=== PATIENT | female | born 1985 | race Caucasian/White ===

== ENCOUNTER 2016-09-27 03:06 | Emergency (ER) | payer OTHER ==
[~2016-09-27] VITALS: Ht 160 cm; Wt 51.9 kg
[~2016-09-27 03:06] MED LIST: ADVAIR 100-501 EACH IH; ADVAIR 250-501 EACH IH; ALBUTEROL17 GM IH; AMBIEN5 MG PO; AUGMENTIN500 MG PO; CLEOCIN300 MG PO; CLINDAMYCIN HC150 MG PO; COLACE100 MG PO; COUGH & COLD S237 ML PO; DOXYCYCLINE HY100 M3 PO; ELAVIL50 MG PO; GLIPIZIDE; LANTUS; LEXAPRO20 MG PO; METFORMIN; METHADONE10 MG PO; MIRALAX17 GM PO; MOTRIN800 MG PO; PERCOCET 5/31 TABLET PO; SIMVASTATIN; ULTRAM50 MG PO; ZOFRAN4 MG PO; [UNRECOGNIZED DRUG - OTHER] PO
[2016-09-27] MEDS ORDERED: CLINDAMYCIN HC300 MG PO (03:32)
[2016-09-27 03:49] VITALS: BP 116/78
== END 2016-09-27 03:50 | disposition home or self-care (01) ==
LOC: EME 03:06
DX: L03.311 Cellulitis of abdominal wall (principal)
CPT/HCPCS: 99281; 99283

== ENCOUNTER 2016-10-09 10:15 | Emergency (ER) | payer OTHER ==
[~2016-10-09] VITALS: Ht 160 cm; Wt 50.8 kg
[~2016-10-09 10:15] MED LIST changes: +CLINDAMYCIN HC300 MG PO
[2016-10-09 12:02] VITALS: BP 105/74
== END 2016-10-09 12:02 | disposition home or self-care (01) ==
LOC: EME 10:15 → EXP 10:15
DX: L02.211 Cutaneous abscess of abdominal wall (principal); Z48.00 Encounter for change or removal of nonsurgical wound dressing; L23.1 Allergic contact dermatitis due to adhesives; F17.200 Nicotine dependence, unspecified, uncomplicated; Z71.6 Tobacco abuse counseling; R82.99 Other abnormal findings in urine; R42 Dizziness and giddiness
CPT/HCPCS: 99281; 99283

== ENCOUNTER 2016-11-14 18:52 | Emergency (ER) | payer OTHER ==
[~2016-11-14] VITALS: Ht 160 cm; Wt 51.5 kg
[2016-11-14] MEDS ORDERED: BACTROBAN NASAL1 G1 BOTH NARES (19:45)
[2016-11-14] MEDS ORDERED: BACTRIM,SEPT1 TABLET PO (19:45)
[2016-11-14 19:50] VITALS: BP 99/73
== END 2016-11-14 20:00 | disposition home or self-care (01) ==
LOC: EME 18:52
DX: L02.31 Cutaneous abscess of buttock (principal)
CPT/HCPCS: 99281; 99284

== ENCOUNTER 2017-12-10 22:58 | Emergency (ER) | payer OTHER ==
[~2017-12-10] VITALS: Ht 160 cm; Wt 58.1 kg
[~2017-12-10 22:58] MED LIST changes: +BACTRIM,SEPT1 TABLET PO; +BACTROBAN NASAL1 G1 BOTH NARES
[2017-12-10 23:31] LABS: HEMOGLOBIN 12.1 G/DL (11.9-15.5); MCH 26.7 PG (29.0-34.0); MCHC 32.7 G/DL (30.0-36.0); MCV 81.7 FL (83-99); PLATELET COUNT 141 K/uL (156-360); RBC DIS.WIDTH-CV 16.2 % (11.8-14.6); RBC DIS.WIDTH-SD 48.6 % (39-53); RED BLOOD COUNT 4.53 M/uL (3.80-5.20); WHITE BLOOD COUNT 10.7 K/uL (4.1-10.2)
[2017-12-10 23:42] LABS: CHLORIDE 102 mEq/L (99-109); POTASSIUM 3.6 mEq/L (3.7-5.4); SODIUM 139 mEq/L (136-147)
[2017-12-10 23:44] LABS: GLUCOSE 117 mg/dL (70-99)
[2017-12-10 23:46] LABS: TOTAL BILIRUBIN 0.2 mg/dL (0.0-1.0)
[2017-12-10 23:48] LABS: ALKALINE PHOSPHATASE 78 IU/L (3-129); CREATININE 0.9 mg/dL (0.6-1.3); GFR ESTIMATE (CALCULATED) > 59 mL/min/
[2017-12-10 23:49] LABS: UREA NITROGEN (BUN) 10 mg/dL (9-23)
[2017-12-10 23:50] LABS: AST (GOT) 16 IU/L (2-34)
[2017-12-10 23:51] LABS: ALT (GPT) 9 IU/L (3-49)
[2017-12-11 00:01] LABS: QUANTITATIVE HCG < 4.0 MIU/ML
[2017-12-11 01:41] LABS: APPEARANCE CLEAR ((CLEAR)); BILIRUBIN NEGATIVE; BLOOD NEGATIVE; COLOR YELLOW ((YELLOW)); GLUCOSE (STRIP) NEGATIVE; KETONES NEGATIVE; LEUKOCYTES NEGATIVE; NITRITE NEGATIVE; PROTEIN (STRIP) NEGATIVE; SPECIFIC GRAVITY 1.009 (1.000-1.030); UCUL ADDED? NO; UROBILINOGEN 0.2 MG/DL (0.2-1.0)
[2017-12-11 02:22] LABS: LIPASE 12 U/L (1.0-51.0)
[2017-12-11 03:59] LABS: SOURCE SWAB
[2017-12-11 05:07] VITALS: BP 102/65
== END 2017-12-11 05:20 | disposition home or self-care (01) ==
LOC: EME 22:58
PROVIDERS: Emergency Medicine
DX: K59.00 Constipation, unspecified (principal); J45.909 Unspecified asthma, uncomplicated; F41.9 Anxiety disorder, unspecified; F32.9 Major depressive disorder, single episode, unspecified; F17.200 Nicotine dependence, unspecified, uncomplicated; Z87.09 Personal history of other diseases of the respiratory system; Z98.890 Other specified postprocedural states; Z90.2 Acquired absence of lung [part of]; Z88.8 Allergy status to other drugs, medicaments and biological substances
CPT/HCPCS: 74177; 80053; 81003; 83690; 84702; 85027; 87210; 87491; 87591; 99281; 99284; J7030